=== PATIENT | female | born 2000 | race Two or more races ===

== ENCOUNTER 2024-11-27 12:34 | Emergency (ER) | payer SELFPAY ==
[~2024-11-27] VITALS: Ht 167.6 cm; Wt 54.4 kg
[2024-11-27] MEDS ORDERED: Percocet 5-3251 EACH PO (13:50)
[2024-11-27] MEDS ORDERED: AMOCLA875 PO (13:50)
== END 2024-11-27 13:55 | disposition home or self-care (01) ==
LOC: ER 12:34
DX: K04.7 Periapical abscess without sinus (principal); K02.9 Dental caries, unspecified
CPT/HCPCS: 99282

== ENCOUNTER 2024-11-30 14:28 | Emergency (ER) | payer SELFPAY ==
[~2024-11-30] VITALS: Ht 152.4 cm; Wt 54.4 kg
[~2024-11-30 14:28] MED LIST: AMOCLA875 PO; Percocet 5-3251 EACH PO
[2024-11-30] MEDS ORDERED: RX Prepack 6 Tabs Oxycodone 5mg UD ONE (16:40)
== END 2024-11-30 16:46 | disposition home or self-care (01) ==
LOC: ER 14:28
DX: S02.5XXA Fracture of tooth (traumatic), initial encounter for closed fracture (principal); K02.9 Dental caries, unspecified; X58.XXXA Exposure to other specified factors, initial encounter; Z79.2 Long term (current) use of antibiotics; Z59.89 Other problems related to housing and economic circumstances
CPT/HCPCS: 64400; 99282-25; A9270